=== PATIENT | female | born 1990 | race Two or more races ===

== ENCOUNTER 2025-06-20 06:59 | Inpatient (IN) | payer MEDICAID, OTHER ==
[~2025-06-20] VITALS: Ht 157.5 cm; Wt 66.5 kg
--- NOTE | 2025-06-20 07:18 | ED.PDOC ---
GI ASSESSMENT HPI Comments 34 y/o F, with no prior medical history presents to the ED for CC of abdominal pain. Patient states, she has been experiencing epigastric abdominal pain with associated symptoms of nausea, vomiting, and chills onset, Friday (06/15/25). Patient reports, she has experienced similar symptoms in the past when told to have IBD. At this time patient complains of 10/10 abdominal pain. Patient denies diarrhea, fatigue, fever, faintness, or weakness. No other symptoms or modifying factors are present at this time. Chief Complaint: Abdominal Pain Time Seen by MD: 07:10 Reviewed Notes: Nurses Notes, Medications, Allergies Allergies: Coded Allergies: NSAIDs (Verified Allergy, Unknown, 06/20/25) Information Source: Patient Mode of Arrival: Ambulatory Timing: Days Duration: Since onset Prehospital treatment: None Vomitus: Watery Stool: Normal Severity: Moderate Recent: None Recent Hx of: Abdominal Operations Pain Location: Epigastric Modifying Factors: Nothing Associated sign and symptoms: Nausea, Vomiting, Abdominal Pain Past Medical History PAST MEDICAL HISTORY: Denies Surgical History: , Hernia Repair, Tubal Ligation Surgical History (Other): gastric bypass WIRE SAWYER History: Denies all WIRE SAWYER Hx Family History Family History: No family hx of Lung [place], Family hx of Cancer Social History Smoker: Non-Smoker Alcohol: Occasionally Drugs: Denies Drug Use Lives In: Home Constitutional: reports: chills; denies: diaphoresis, fatigue, fever, malaise, sweats, weakness, others EENTM: denies: blurred vision, double vision, ear bleeding, ear discharge, ear drainage, ear pain, ear ringing, eye pain, eye redness, hearing loss, mouth pain, mouth swelling, nasal discharge, nose bleeding, nose congestion, nose pain, photophobia, tearing, throat pain, throat swelling, voice changes, others Respiratory: denies: cough, hemoptysis, orthopnea, SOB at rest, shortness of breath, SOB with excertion, stridor, wheezing, others Cardiovascular: denies: chest pain, dizzy spells, diaphoresis, Dyspnea on exertion, edema, irregular heart beat, left arm pain, lightheadedness, palpitations, PND, syncope, others Gastrointestinal: reports: abdominal pain, nausea, vomiting; denies: abdomen distended, blood streaked bowels, constipated, diarrhea, dysphagia, difficulty swallowing, hematemesis, melena, poor appetite, poor fluid intake, rectal bleeding, rectal pain, others Genitourinary: denies: abnormal vagina bleeding, burning, dyspareunia, dysuria, flank pain, frequency, hematuria, incontinence, pain, , vagina discharge, urgency, others Neurological: denies: dizziness, fainting, headache, left sided numbness, left sided weakness, numbness, paresthesia, pre-existing deficit, right sided numbness, right sided weakness, seizure, speech problems, tingling, tremors, weakness, others Musculoskeletal: denies: back pain, gout, joint pain, joint swelling, muscle pain, muscle stiffness, neck pain, others Integumetry: denies: bruises, change in color, change in hair/nails, dryness, laceration, lesions, lumps, rash, wounds, others Allergic/Immunocompromised: denies: Difficulty Healing, Frequent Infections, Hives, Itching, others Hematologic/Lymphatic: denies: anemia, blood clots, easy bleeding, easy bruising, swollen glands, others Endocrine: denies: excessive hunger, excessive sweating, excessive thirst, excessive urination, flushing, intolerance to cold, intolerance to heat, unexplained weight gain, unexplained weight loss, others Psychiatric: denies: anxiety, bipolar disorder, depression, hopeless, panic disorder, schizophrenia, sleepless, suicidal, others All Other Systems: Reviewed and Negative Physical Exam General Appearance: Moderate Distress HEENT: Pale Conjuntivae (L), Pale Conjuntivae (R), Pharynx Normal, TMs Normal Neck: Full Range of Motion, Non-Tender, Normal, Normal Inspection Respiratory: Chest Non-Tender, Lungs Clear, No Accessory Muscle Use, No Respiratory Distress, Normal Breath Sounds Cardiovascular: No Edema, No JVD, No Murmur, No Gallop, Normal Peripheral Pulses, Regular Rate/Rhythm Breast Exam: Deferred Gastrointestinal: Epigastric, No Organomegaly, No Pulsatile Mass, Normal Bowel Sounds, Soft, Tenderness Genitalia: Deferred Pelvic: Deferred Rectal: Deferred Extremities: No calf tenderness, Normal capillary refill, Normal inspection, Normal range of motion, Non-tender, No pedal edema Musculoskeletal : Apperance: Normal Neurologic: Alert, detective supervisor II-XII nml as Tested, Motor Weakness, Normal Affect, Normal Mood, No Sensory Deficits Cerebellar Function: Normal Reflexes: Normal Skin: Dry, Normal Color, Warm Lymphatic: No Adenopathy Was a procedure done? Was a procedure done?: No GI differential Dx Differential Diagnosis: Constipation, Diverticular disease, Gastritis/PUD, Gastroenteritis, Inflammatory BD, Electrolyte Imbalance, Food Poisoning, Bacterial, Viral X-Ray, Labs, Meds, VS Vital Signs Date Time Temp Pulse Resp B/P (MAP) Pulse Ox O2 Delivery O2 Flow Rate FiO2 06/20/25 08:33 72 18 151/60 06/20/25 08:30 98.2 72 18 151/60 (90) 97 98.2 06/20/25 07:39 98.2 81 17 95/70 (78) 100 98.2 06/20/25 07:37 18 100 Room Air* 0 21 06/20/25 07:01 98.4 111 20 115/55 99 98.4 Lab Test 06/20/25 07:43 06/20/25 07:20 Range/Units Urine Color Pending Urine Clarity Pending Urine pH Pending Urine Specific [place] Pending Urine Protein Pending Urine Ketones Pending Urine Blood Pending Urine Nitrite Pending Urine Bilirubin Pending Urine Urobilinogen Pending Urine Leukocyte Esterase Pending Urine RBC Pending Urine Microscopic WBC Pending Urine Squamous Epithelial Cells Pending Urine Bacteria Pending Urine Glucose Pending White Blood Count 9.3 4.4-10.8 10^3/uL Red Blood Count 4.58 4.0-5.20 10^6/uL Hemoglobin 14.6 12.2-16.2 g/dL Hematocrit 40.9 36.0-46.0 % Mean Corpuscular Volume 89.3 80.0-100.0 fL Mean Corpuscular Hemoglobin 31.8 28.0-32.0 pg Mean Corpuscular Hemoglobin Concent 35.7 32.0-36.0 g/dL Red Cell Distribution Width 14.8 H 11.8-14.3 % Platelet Count 246 140-450 10^3/uL Mean Platelet Volume 7.8 6.9-10.8 fL Neutrophils (%) (Auto) 84.5 H 37.0-80.0 % Lymphocytes (%) (Auto) 11.5 10.0-50.0 % Monocytes (%) (Auto) 3.5 0.0-12.0 % Eosinophils (%) (Auto) 0.2 0.0-7.0 % Basophils (%) (Auto) 0.3 0.0-2.0 % Neutrophils # (Auto) 7.8 1.6-8.6 10 ^3/uL Lymphocytes # (Auto) 1.1 0.4-5.4 10 ^3/uL Monocytes # (Auto) 0.3 0-1.3 10 ^3/uL Eosinophils # (Auto) 0 0-0.8 10 ^3/uL Basophils # (Auto) 0 0-0.2 10 ^3/uL Nucleated Red Blood Cells 0.0 % Sodium Level 144 136-145 mmol/L Potassium Level 4.2 3.5-5.1 mmol/L Chloride Level 108 H 98-107 mmol/L Carbon Dioxide Level 23 20-31 mmol/L Anion Gap 13 5-15 Blood Urea Nitrogen 6 L 9-23 mg/dL Creatinine 0.78 0.550-1.02 mg/dL Glomerular Filtration Rate Calc 101 >90 mL/min BUN/Creatinine Ratio 7.7 L 10.0-20.0 Serum Glucose 103 74-106 mg/dL Calcium Level 10.3 8.7-10.4 mg/dL Total Bilirubin 0.4 0.2-1.0 mg/dL Aspartate Amino Transferase (AST) 18 13-40 U/L Alanine Aminotransferase (ALT) 13 7-40 U/L Alkaline Phosphatase 61 46-116 U/L Total Protein 7.9 5.7-8.2 g/dL Albumin 4.9 H 3.2-4.8 g/dL Lipase 42 12-53 U/L Current Medications Medications (Trade) Dose Ordered Sig/Celia Route Start Time Stop Time Status Last Admin Ondansetron HCl (Zofran) 4 mg ONCE ONCE IV 06/20/25 07:15 06/20/25 07:16 DC 06/20/25 07:43 Morphine Sulfate 4 mg ONCE ONCE IV 06/20/25 07:15 06/20/25 07:16 DC 06/20/25 08:33 Sodium Chloride 500 ml @ 500 mls/hr Q1H ONCE IVB 06/20/25 07:15 06/20/25 08:14 DC 06/20/25 07:43 Pantoprazole Sodium (Protonix) 40 mg ONCE ONCE IV 06/20/25 07:15 06/20/25 07:16 DC 06/20/25 07:43 CAT scan of the abdomen and pelvis shows: IMPRESSION: Limited evaluation without contrast. Abnormally dilated small bowel with Fecal like contents consistent with small- bowel obstruction. Recommend surgical consultation. There is associated bowel wall thickening and mesenteric stranding. Extremely heterogeneous appearance of the uterus with numerous hypodense foci and abnormal enlargement. Recommend pelvic ultrasound to further evaluate for potential uterine mass, cystic leiomyoma, other etiologies including endometrial neoplasm. Cystic/ hypodense region near the pancreatic head region measuring 2.5 x 3.4 cm. Recommend MRI abdomen with and without contrast, surgical consultation. Postsurgical changes stomach, likely gastric bypass. Correlate with surgical history. Small amount of free pelvic fluid. Nonobstructing left renal calculus. IV Hep-Lock was established. The patient was given morphine 4 mg IV push for the pain The patient was given Zofran 4 mg IV push for the nausea The patient was given normal saline at a 500 cc bolus. The patient was given Protonix 40 mg IV push The lipase is within normal limits The patient's liver enzymes are within normal limits The patient's CBC and chemistry panel are within normal limits After reviewing the CAT scan, we are getting a surgical consult. The patient will have an NG-tube placed. After reviewing the patient's history, there is a concern that the patient may indeed have uterine cancer with possible metastasis. The patient will be admitted at this time. We are discussing the findings with the patient. Images Reviewed?: Images reviewed and evaluated by me Time of 1ST Reevaluation: 07:40 Reevaluation 1ST: Unchanged Patient Education/Counseling: Diagnosis, Treatment, Prognosis Family Education/Counseling: No Family Present SEPSIS Sepsis Screen Date sepsis recognized/suspect: Jun 20, 2025 Time Sepsis recognized/suspect: 703 Recent Procedure: No On Antibiotic Therapy: No Respiratory Rate >20: No Heart Rate >90: Yes Temp<36 C (96.8 F) or >38.3 C: No SBP <90 or MAP <65 mmHG: No New Acute Mental Status Change: No Is the patient on CPAP, BIPAP,: No Physician Orders Urinalysis (06/20/25 07:13) Ct Ab Pel Wo Con-No Oral Or Iv (06/20/25 07:13) Heplock Iv (06/20/25 07:13) Ngt/Ogt (06/20/25 ) * Surgical Consult (06/20/25 ) Vital Signs Date Time Temp Pulse Resp B/P (MAP) Pulse Ox O2 Delivery O2 Flow Rate FiO2 06/20/25 08:33 72 18 151/60 06/20/25 08:30 98.2 72 18 151/60 (90) 97 98.2 06/20/25 07:39 98.2 81 17 95/70 (78) 100 98.2 06/20/25 07:37 18 100 Room Air* 0 21 06/20/25 07:01 98.4 111 20 115/55 99 98.4 Laboratory Tests Test 06/20/25 07:20 White Blood Count 9.3 10^3/uL (4.4-10.8) Medications Medications Dose Ordered Sig/Celia Route Start Time Stop Time Status Last Admin Dose Admin Morphine Sulfate 4 mg ONCE ONCE IV 06/20/25 07:15 06/20/25 07:16 DC 06/20/25 08:33 Ondansetron HCl 4 mg ONCE ONCE IV 06/20/25 07:15 06/20/25 07:16 DC 06/20/25 07:43 Pantoprazole Sodium 40 mg ONCE ONCE IV 06/20/25 07:15 06/20/25 07:16 DC 06/20/25 07:43 Sodium Chloride 500 ml @ 500 mls/hr Q1H ONCE IVB 06/20/25 07:15 06/20/25 08:14 DC 06/20/25 07:43 Departure 1 Departure Time of Disposition: 09:13 Impression: Primary Impression: Intractable abdominal pain Additional Impressions: Small bowel obstruction Uterine mass Pancreatic mass Vomiting Qualified Codes: R11.14 - Bilious vomiting Disposition: ADMITTED INPATIENT Admit to: Med Surg Condition: Fair Critical Care Note Critical Care Time?: No Stability Stability form required: Yes Unstable for transfer: Telemetry monitoring (Telemetry monitoring required), ED Physician Assesment (Clinical assesment) Heart Score Heart Score: Heart Score Response (Comments) Value History N/A 0 EKG N/A 0 Age N/A 0 Risk Factors N/A 0 Troponin N/A 0 Total 0 I personally scribed for MARIA LUISA BOWER MD ([email or web address]) on 06/20/25 at 07:18. Electronically submitted by Jackie Lugo ([email or web address]). MARIA LUISA BOWER MD Jun 20, 2025 07:18
[2025-06-20 07:37] VITALS: RESP 18; O2SAT 100
[2025-06-20 07:38] LABS: Hematocrit 40.9 % (36.0-46.0); Hemoglobin 14.6 g/dL (12.2-16.2); Mean Corpuscular Hemoglobin 31.8 pg (28.0-32.0); Mean Corpuscular Volume 89.3 fL (80.0-100.0); Nucleated Red Blood Cells % 0.0 %
[2025-06-20] MEDS: PANTOPRAZOLE 40 MG/10 ML VIAL INJ IV ONE (07:43)
[2025-06-20] MEDS: SODIUM CHLORIDE 0.9% 500 ML IVB ONE (07:43)
[2025-06-20] MEDS: ONDANSETRON HCL 4 MG/2 ML VIAL IV ONE (07:43)
[2025-06-20 07:56] LABS: Alanine Aminotransferase 13 U/L (7-40); Alkaline Phosphatase 61 U/L (46-116); Anion Gap 13 (5-15); BUN/Creatinine Ratio 7.7 (10.0-20.0); Calcium 10.3 mg/dL (8.7-10.4); Carbon Dioxide 23 mmol/L (20-31); Glucose 103 mg/dL (74-106); Potassium 4.2 mmol/L (3.5-5.1); Sodium 144 mmol/L (136-145); Total Protein 7.9 g/dL (5.7-8.2)
[2025-06-20 07:57] LABS: Bilirubin, Total 0.4 mg/dL (0.2-1.0)
[2025-06-20 07:58] LABS: Albumin 4.9 g/dL (3.2-4.8); Blood Urea Nitrogen 6 mg/dL (9-23); Chloride 108 mmol/L (98-107)
--- NOTE | 2025-06-20 08:27 | DVH ---
Indication: pain Technique: CT axial images of the abdomen and pelvis are obtained without contrast. Coronal and sagit jaimie reformats were obtained. Radiation Dose Information: CTDI volume is 8.44 mGy. Dose-length product is 427.81 mGy*cm Comparison: None FINDINGS: There is limited interpretation of the abdomen and pelvis without administration of intravenous contr ast. Lung bases demonstrate no pleural effusion. Adrenal glands, spleen unremarkable in shape. Liver unremarkable in shape. Postsurgical changes stomachm. There is hypodense /cystic appearing lesion near the pancreatic and region measuring 2.5 x 3.4 cm Kidneys demonstrate no hydronephrosis. Nonobstructing left renal calculus measuring 2 mm. The small bowel loops are abnormally dilated up to 5 cm. Fecal like contents within the small bowel e specially withinm the right abdomen. There is associated surrounding stranding and mild bowel wall th ickening Small bowel loops relatively nondistended. No secondary signs for appendicitis. The uterus is extremely heterogeneous in appearance. There are numerous regions of ill-defined hypode nsity throughout the uterus/endo myometrial region. Small amount of free pelvic fluid. No inguinal ly mphadenopathy. No aggressive osseous process IMPRESSION: Limited evaluation without contrast. Abnormally dilated small bowel with Fecal like contents consistent with small-bowel obstruction. Rec ommend surgical consultation. There is associated bowel wall thickening and mesenteric stranding. Extremely heterogeneous appearance of the uterus with numerous hypodense foci and abnormal enlargemen t. Recommend pelvic ultrasound to further evaluate for potential uterine mass, cystic leiomyoma, oth er etiologies including endometrial neoplasm. Cystic/ hypodense region near the pancreatic head region measuring 2.5 x 3.4 cm. Recommend MRI abdom en with and without contrast, surgical consultation. Postsurgical changes stomach, likely gastric bypass. Correlate with surgical history. Small amount of free pelvic fluid. Nonobstructing left renal calculus. Other findings as described.
[2025-06-20] MEDS: MORPHINE SULFATE 4 MG/ML SYR/VIAL IV ONE (08:33)
[2025-06-20 08:53] LABS: Lipase 42 U/L (12-53)
[2025-06-20 09:14] LABS: Urine Budding Yeast OCCASIONAL /hpf (None Seen); Urine Protein, UAD Negative (Negative)
--- NOTE | 2025-06-20 11:27 | DVH ---
CLINICAL HISTORY: CHECK PLACEMENT TECHNIQUE: Single view of the chest was obtained. COMPARISON: None FINDINGS: A NGT terminates at the stomach. The heart size and pulmonary vasculature are normal. The lungs are c lear. IMPRESSION: NO ACUTE CARDIOPULMONARY PROCESS.
--- NOTE | 2025-06-20 12:14 | DVHHP2 ---
History of Present Illness Reason for Visit: Abdominal pain History of Present Illness 34-year-old female with history of ischemic small intestine presented to the ED with a chief complaint of abdominal pain. Patient states she has been having epigastric abdominal pain with nausea vomiting and chills onset Friday 06/15. Patient states she was able to have a bowel movement this morning, when she was at home she took MiraLax/milk of magnesia/mineral oil enema which helped but she did not feel that she had a significant bowel movement, patient states no blood in stool noted, after bowel movement abdominal pain did not subside. Patient states current abdominal pain is 8/10, she denies diarrhea, fatigue, fever, dizziness, weakness no other symptoms or modifying factors are present at this time. Patient is having an NG-tube placed, patient speaks both French and [place]ish. We will admit patient for surgical consult and management/treatment, abdominal CT does show small bowel obstruction. Past Surgical History , hernia, tubal ligation, gastric bypass, cholecystectomy Family History Family history of cancer Smoke: No ALCOHOL: rare Drugs: None Lives: with Family Review of Systems Constitutional: No: Fever, Chills, Sweats, Weakness, Malaise, Other Eyes: No: Pain, Vision change, Conjunctivae inflammation, Eyelid inflammation, Other, Redness ENT: No: Ear pain, Ear discharge, Nose pain, Nose discharge, Nose congestion, Mouth pain, Mouth swelling, Throat pain, Throat swelling, Other Respiratory: No: Cough, Dry, Shortness of breath, SOB with excertion, Wheezing, Hemoptysis, Pleuritic Pain, Sputum, Wheezing, Other Cardiovascular: No: Chest Pain, Palpitations, Orthopnea, Paroxysmal Noc. Dyspnea, Edema, Lt Headedness, Other Gastrointestinal: Nausea, Vomiting, Abdominal Pain; No: Diarrhea, Constipation, Melena, Hematochezia, Other Genitourinary: No Dysuria, No Frequency, No Incontinence, No Hematuria, No Retention, No Other Musculoskeletal: No: other, neck pain, shoulder pain, arm pain, back pain, hand pain, leg pain, foot pain Skin: No: Rash, Lesions, Jaundice, Bruising, Other Neurological: No: Weakness, Numbness, Incoordination, Change in speech, Confusion, Seizures, Other Allergies: Coded Allergies: NSAIDs (Verified Allergy, Unknown, 06/20/25) Medications Current Medications Medications Dose Ordered Sig/Celia Route Start Time Stop Time Status Last Admin Dose Admin Sodium Chloride 1,000 ml @ 120 mls/hr Q8H20M IV 06/20/25 11:15 UNV Ondansetron HCl 4 mg Q4HP PRN IV 06/20/25 11:15 UNV Morphine Sulfate 2 mg Q4HPRN PRN IV 06/20/25 11:15 UNV Ceftriaxone Sodium 50 ml @ 100 mls/hr DAILY@09 IV 06/20/25 11:15 UNV Metronidazole 100 ml @ 100 mls/hr Q8HR IV 06/20/25 14:00 UNV Exam Vital Signs Vital Signs Date Time Temp Pulse Resp B/P (MAP) Pulse Ox O2 Delivery O2 Flow Rate FiO2 06/20/25 10:04 68 06/20/25 10:00 98.0 18 118/74 (89) 99 98.0 06/20/25 07:37 Room Air* 0 21 General Appearance: Alert, Oriented X3, Cooperative, No acute distress HEENT: Atraumatic, PERRLA, EOMI, Mucous membr. moist/pink Respiratory: Clear to auscultation, Normal air movement Cardiovascular: Regular rate, Normal S1, Normal S2, No murmurs Abdominal: Normal bowel sounds, Soft, No hepatospenomegaly, No masses, Other (Abdomen tender to palpation specifically upper mid abdomen) Extremities: No clubbing, No cyanosis, No edema, Normal pulses, No tenderness/swelling Skin: No rashes, No breakdown, No significant lesion Neuro: Normal gait, Normal speech, Strength at 5/5 X4 ext, Sensation intact, Cranial nerves 3-12 NL Psych/Mental Status: Mental status NL, Mood NL Labs/Xrays Reviewed with patient Labs Test 06/20/25 07:43 06/20/25 07:20 Range/Units Urine Color Light-yellow Yellow Urine Clarity Clear Clear Urine pH 7.5 5.0-9.0 Urine Specific [place] 1.020 1.001-1.035 Urine Protein Negative Negative Urine Ketones 3+ H Negative Urine Blood 2+ H Negative /uL Urine Nitrite Negative Negative Urine Bilirubin Negative Negative Urine Urobilinogen Normal Negative mg/dL Urine Leukocyte Esterase Negative Negative /uL Urine RBC 27 0 - 4 /hpf Urine Microscopic WBC < 1 0-5 /HPF Urine Squamous Epithelial Cells Few <5 /hpf Urine Bacteria None seen None Seen /hpf Urine Mucus Few None Seen Urine Yeast (Budding) Occasional None Seen /hpf Urine Glucose Normal Normal mg/dL White Blood Count 9.3 4.4-10.8 10^3/uL Red Blood Count 4.58 4.0-5.20 10^6/uL Hemoglobin 14.6 12.2-16.2 g/dL Hematocrit 40.9 36.0-46.0 % Mean Corpuscular Volume 89.3 80.0-100.0 fL Mean Corpuscular Hemoglobin 31.8 28.0-32.0 pg Mean Corpuscular Hemoglobin Concent 35.7 32.0-36.0 g/dL Red Cell Distribution Width 14.8 H 11.8-14.3 % Platelet Count 246 140-450 10^3/uL Mean Platelet Volume 7.8 6.9-10.8 fL Neutrophils (%) (Auto) 84.5 H 37.0-80.0 % Lymphocytes (%) (Auto) 11.5 10.0-50.0 % Monocytes (%) (Auto) 3.5 0.0-12.0 % Eosinophils (%) (Auto) 0.2 0.0-7.0 % Basophils (%) (Auto) 0.3 0.0-2.0 % Neutrophils # (Auto) 7.8 1.6-8.6 10 ^3/uL Lymphocytes # (Auto) 1.1 0.4-5.4 10 ^3/uL Monocytes # (Auto) 0.3 0-1.3 10 ^3/uL Eosinophils # (Auto) 0 0-0.8 10 ^3/uL Basophils # (Auto) 0 0-0.2 10 ^3/uL Nucleated Red Blood Cells 0.0 % Sodium Level 144 136-145 mmol/L Potassium Level 4.2 3.5-5.1 mmol/L Chloride Level 108 H 98-107 mmol/L Carbon Dioxide Level 23 20-31 mmol/L Anion Gap 13 5-15 Blood Urea Nitrogen 6 L 9-23 mg/dL Creatinine 0.78 0.550-1.02 mg/dL Glomerular Filtration Rate Calc 101 >90 mL/min BUN/Creatinine Ratio 7.7 L 10.0-20.0 Serum Glucose 103 74-106 mg/dL Calcium Level 10.3 8.7-10.4 mg/dL Total Bilirubin 0.4 0.2-1.0 mg/dL Aspartate Amino Transferase (AST) 18 13-40 U/L Alanine Aminotransferase (ALT) 13 7-40 U/L Alkaline Phosphatase 61 46-116 U/L Total Protein 7.9 5.7-8.2 g/dL Albumin 4.9 H 3.2-4.8 g/dL Lipase 42 12-53 U/L SEPSIS Sepsis Screen Date sepsis recognized/suspect: Jun 20, 2025 Time Sepsis recognized/suspect: 703 Recent Procedure: No On Antibiotic Therapy: No Respiratory Rate >20: No Heart Rate >90: Yes Temp<36 C (96.8 F) or >38.3 C: No SBP <90 or MAP <65 mmHG: No New Acute Mental Status Change: No Is the patient on CPAP, BIPAP,: No Physician Orders Ct Ab Pel Wo Con-No Oral Or Iv (06/20/25 07:13) Heplock Iv (06/20/25 07:13) Ngt/Ogt (06/20/25 ) * Surgical Consult (06/20/25 ) Chest Portable (06/20/25 10:35) Admit (06/20/25 11:07) Allergies (06/20/25 11:07) Code Status (06/20/25 11:07) Sodium Chloride 0.9% (06/20/25 11:15) Ondansetron Hcl (Zofran) (06/20/25 11:15) Complete Blood Count (06/21/25 04:00) Comprehensive Metabolic Panel (06/21/25 04:00) Npo (Nothing By Mouth) Diet (06/20/25 Lunch) Condition: Serious (06/20/25 11:07) Bedside Commode (06/20/25 11:07) Morphine Sulfate Injection (06/20/25 11:15) Pelvic (06/20/25 11:07) Ceftriaxone 1gm/50ml D5w (Rocephin) (06/20/25 11:15) Metronidazole 500mg/100ml (Flagyl 500mg/ (06/20/25 14:00) Vital Signs Date Time Temp Pulse Resp B/P (MAP) Pulse Ox O2 Delivery O2 Flow Rate FiO2 06/20/25 10:04 68 06/20/25 10:00 98.0 77 18 118/74 (89) 99 98.0 06/20/25 08:33 72 18 151/60 06/20/25 08:30 98.2 72 18 151/60 (90) 97 98.2 06/20/25 07:39 98.2 81 17 95/70 (78) 100 98.2 06/20/25 07:37 18 100 Room Air* 0 21 06/20/25 07:01 98.4 111 20 115/55 99 98.4 Laboratory Tests Test 06/20/25 07:20 White Blood Count 9.3 10^3/uL (4.4-10.8) Medications Medications Dose Ordered Sig/Celia Route Start Time Stop Time Status Last Admin Dose Admin Morphine Sulfate 4 mg ONCE ONCE IV 06/20/25 07:15 06/20/25 07:16 DC 06/20/25 08:33 4 MG Ondansetron HCl 4 mg ONCE ONCE IV 06/20/25 07:15 06/20/25 07:16 DC 06/20/25 07:43 4 MG Pantoprazole Sodium 40 mg ONCE ONCE IV 06/20/25 07:15 06/20/25 07:16 DC 06/20/25 07:43 40 MG Sodium Chloride 500 ml @ 500 mls/hr Q1H ONCE IVB 06/20/25 07:15 06/20/25 08:14 DC 06/20/25 07:43 500 MLS/HR Assessment/Plan Assessment/Plan Small-bowel obstruction Consult surgical admit to medical/surg NG tube placed Empiric antibiotics Rocephin/Flagyl Zofran for nausea p.r.n. morphine for pain p.r.n. IV fluids Possible uterine mass noted on CT abdomen Pelvic ultrasound pending Hospitalist can Consider Oncology/gynecological consult PPX/diet NPO Protonix Plan discussed with: Patient My Orders Orders - ANTOINE MARIE TELEPHONE TRIAGE NURSE Procedure Category Date Status Time Chest Portable XY 06/20/25 Resulted 10:35 Admit ADMIT 06/20/25 Transmitted 11:07 Allergies GINO 06/20/25 In Process 11:07 Code Status CODE 06/20/25 Transmitted 11:07 Sodium Chloride 0.9% PHA 06/20/25 Logged 11:15 Ondansetron Hcl PHA 06/20/25 Logged (Zofran) 11:15 Complete Blood Count LAB 06/21/25 Verified 04:00 Comprehensive LAB 06/21/25 Verified Metabolic Panel 04:00 Npo (Nothing By DIET 06/20/25 Transmitted Mouth) Diet Lunch Condition: Serious GINO 06/20/25 In Process 11:07 Bedside Commode GINO 06/20/25 In Process 11:07 Morphine Sulfate PHA 06/20/25 Logged Injection 11:15 Pelvic US 06/20/25 Taken 11:07 Ceftriaxone 1gm/50ml PHA 06/20/25 Logged D5w (Rocephin) 11:15 Metronidazole PHA 06/20/25 Logged 500mg/100ml (Flagyl 14:00 Date of Service: Jun 20, 2025 Billing Provider: ANTOINE MARIE Common Visit Codes: [id number] INP/OBS CARE (HIGH) ANTOINE MARIE Jun 20, 2025 12:14
--- NOTE | 2025-06-20 12:36 | DVH ---
CLINICAL HISTORY: uterine mass TECHNIQUE: Ultrasound examination of the female pelvis was performed transabdominal. COMPARISON: None FINDINGS: The uterus measures 10.7 X 7.9 X 9.2 CM. The myometrial echotexture is heterogeneous with 6.6 cm jacquelyn rine body / fundal fibroid. There is a 2.9 cm right uterine subserosal fibroid. The endometrial lining is normal in thickness, measuring 9 mm. The right ovary measures 4.9 X 2.9 X 3.4 cm. The left ovary measures 3.7 X 3.0 X 3.5 cm. Normal color doppler flow and vascular waveforms. There is trace nonspecific free fluid. IMPRESSION: Uterine fibroids measuring up to 6.6 cm.
--- NOTE | 2025-06-20 12:50 | DVHINCON2 ---
Date of service: Jun 20, 2025 History of Present Illness 34-year-old female with a history of multiple abdominal surgeries admitted secondary to diffuse abdominal pain especially in the epigastric region associated with nausea and vomiting for past six days. Patient reports that she did have a bowel movement earlier today with the help of a laxative. Past Medical History None Past Surgical History Laparoscopic gastric bypass surgery. Laparoscopic cholecystectomy. Two C- sections. Tubal ligation. Hernia repair. Family History Noncontributory Social History Denies alcohol, tobacco, IV drug use Allergies: Coded Allergies: NSAIDs (Verified Allergy, Unknown, 06/20/25) Current Medications Current Medications Medications (Trade) Dose Ordered Sig/Celia Route PRN Reason Start Time Stop Time Status Last Admin Sodium Chloride 1,000 ml @ 120 mls/hr Q8H20M IV 06/20/25 11:15 UNV Ondansetron HCl (Zofran) 4 mg Q4HP PRN IV NAUSEA / VOMITING 06/20/25 11:15 UNV Morphine Sulfate 2 mg Q4HPRN PRN IV SEVERE PAIN (7-10 PAIN SCALE) 06/20/25 11:15 UNV Ceftriaxone Sodium 50 ml @ 100 mls/hr DAILY@09 IV 06/20/25 11:15 UNV Metronidazole 100 ml @ 100 mls/hr Q8HR IV 06/20/25 14:00 UNV Pantoprazole Sodium (Protonix) 40 mg DAILY IV 06/21/25 10:00 UNV Vital Signs Vital Signs Date Time Temp Pulse Resp B/P (MAP) Pulse Ox O2 Delivery O2 Flow Rate FiO2 06/20/25 12:21 94 06/20/25 12:00 14 121/60 (80) 94 06/20/25 10:00 98.0 98.0 06/20/25 07:37 Room Air* 0 21 Physical Exam GEN: Age-appropriate female in no acute distress. Alert. There is an NG tube to low intermittent suction. HEENT: Normocephalic atraumatic. Moist mucous membranes. Anicteric sclerae. NG tube to low intermittent suction. CV: RRR Respiratory: CTAB ABD: Large midline incisional scar with multiple smaller incisional scars. Minimal distention with especially epigastric tenderness to palpation with guarding. CT of the abdomen and pelvis: Abnormally dilated small bowel with fecal I contents consistent with small-bowel obstruction. There is a associated bowel wall thickening and mesenteric stranding. Extremely heterogeneous appearance of the uterus with numerous hypodense foci and abnormal enlargement. Cystic/hypodense region near the pancreatic head region measuring 2.5 x 3.4 cm. Postsurgical changes to stomach but gastric bypass. Small amount of free pelvic fluid. Labs/Diagnostic Data Labs Test 06/20/25 07:43 06/20/25 07:20 Range/Units Urine Color Light-yellow Yellow Urine Clarity Clear Clear Urine pH 7.5 5.0-9.0 Urine Specific [place] 1.020 1.001-1.035 Urine Protein Negative Negative Urine Ketones 3+ H Negative Urine Blood 2+ H Negative /uL Urine Nitrite Negative Negative Urine Bilirubin Negative Negative Urine Urobilinogen Normal Negative mg/dL Urine Leukocyte Esterase Negative Negative /uL Urine RBC 27 0 - 4 /hpf Urine Microscopic WBC < 1 0-5 /HPF Urine Squamous Epithelial Cells Few <5 /hpf Urine Bacteria None seen None Seen /hpf Urine Mucus Few None Seen Urine Yeast (Budding) Occasional None Seen /hpf Urine Glucose Normal Normal mg/dL White Blood Count 9.3 4.4-10.8 10^3/uL Red Blood Count 4.58 4.0-5.20 10^6/uL Hemoglobin 14.6 12.2-16.2 g/dL Hematocrit 40.9 36.0-46.0 % Mean Corpuscular Volume 89.3 80.0-100.0 fL Mean Corpuscular Hemoglobin 31.8 28.0-32.0 pg Mean Corpuscular Hemoglobin Concent 35.7 32.0-36.0 g/dL Red Cell Distribution Width 14.8 H 11.8-14.3 % Platelet Count 246 140-450 10^3/uL Mean Platelet Volume 7.8 6.9-10.8 fL Neutrophils (%) (Auto) 84.5 H 37.0-80.0 % Lymphocytes (%) (Auto) 11.5 10.0-50.0 % Monocytes (%) (Auto) 3.5 0.0-12.0 % Eosinophils (%) (Auto) 0.2 0.0-7.0 % Basophils (%) (Auto) 0.3 0.0-2.0 % Neutrophils # (Auto) 7.8 1.6-8.6 10 ^3/uL Lymphocytes # (Auto) 1.1 0.4-5.4 10 ^3/uL Monocytes # (Auto) 0.3 0-1.3 10 ^3/uL Eosinophils # (Auto) 0 0-0.8 10 ^3/uL Basophils # (Auto) 0 0-0.2 10 ^3/uL Nucleated Red Blood Cells 0.0 % Sodium Level 144 136-145 mmol/L Potassium Level 4.2 3.5-5.1 mmol/L Chloride Level 108 H 98-107 mmol/L Carbon Dioxide Level 23 20-31 mmol/L Anion Gap 13 5-15 Blood Urea Nitrogen 6 L 9-23 mg/dL Creatinine 0.78 0.550-1.02 mg/dL Glomerular Filtration Rate Calc 101 >90 mL/min BUN/Creatinine Ratio 7.7 L 10.0-20.0 Serum Glucose 103 74-106 mg/dL Calcium Level 10.3 8.7-10.4 mg/dL Total Bilirubin 0.4 0.2-1.0 mg/dL Aspartate Amino Transferase (AST) 18 13-40 U/L Alanine Aminotransferase (ALT) 13 7-40 U/L Alkaline Phosphatase 61 46-116 U/L Total Protein 7.9 5.7-8.2 g/dL Albumin 4.9 H 3.2-4.8 g/dL Lipase 42 12-53 U/L Assessment 1. Small-bowel obstruction 2. Pancreatic cyst/lesion Plan/Recommendation 1. Continue with NG tube decompression 2. Small-bowel follow-through with Gastrografin 3. MRI to better assess the pancreatic cystic lesion Plan discussed with: Patient JOHANA REEDER MD Jun 20, 2025 12:50
[2025-06-20] MEDS: SODIUM CHLORIDE 0.9% 1,000 ML IV SCH (14:21)
[2025-06-20] MEDS: GASTROGRAFIN 120 ML SOL ONE (14:56)
--- NOTE | 2025-06-20 15:58 | DVH ---
SMALL BOWEL FOLLOW-THROUGH REASON FOR EXAMINATION: Small-bowel obstruction CONTRAST: 180 cc Gastrografin by enteric tube IMAGES: 4 images of the abdomen are submitted for review. FINDINGS: The licensing registration examiner film demonstrates cholecystectomy clips and an enteric tube with the tip and side hole projecting over the stomach. There is no supine evidence of pneumoperitoneum. There is no signi ficant distention of visualized small or large bowel loops on the licensing registration examiner image. Surgical sutures proje ct over the left upper quadrant. Contrast administered through the enteric tube enters the gastric remnant and rapidly passes into a l oop of jejunum in the left upper quadrant. Contrast passes rapidly as far as the distal ileum within 15 minutes. Contrast is identified throughout the colon and in the rectum within 30 minutes of admin istration. No extrinsic or intrinsic mass effect is identified. IMPRESSION: No evidence of small-bowel obstruction. Contrast reaches the rectum within 30 minutes of administrat ion.
[2025-06-20] MEDS: ONDANSETRON HCL 4 MG/2 ML VIAL IV PRN (17:03)
[2025-06-20] MEDS: MORPHINE SULFATE INJ 2 MG/ml SYRG IV PRN (17:05)
[2025-06-20 17:30] VITALS: BP 105/59; PULSE 73; RESP 18; RESP 19; TEMP 97.2; O2SAT 97
[2025-06-20 20:00] VITALS: PULSE 61; RESP 18; O2SAT 96
[2025-06-20 20:52] VITALS: BP 104/67; PULSE 61; RESP 18; TEMP 98.1; O2SAT 96
[2025-06-21] VITALS (8 sets, daily range): BP systolic 95–117; BP diastolic 56–71; PULSE 68–79; RESP 16–19; TEMP 98–98.6; O2SAT 96–100
[2025-06-21 08:58] LABS: Hematocrit 35.6 % (36.0-46.0); Hemoglobin 12.3 g/dL (12.2-16.2); Mean Corpuscular Hemoglobin 31.4 pg (28.0-32.0); Mean Corpuscular Volume 90.9 fL (80.0-100.0); Nucleated Red Blood Cells % 0.1 %
[2025-06-21 09:11] LABS: INR 1.08 (0.9-1.15); Partial Thromboplastin Time 25.6 SEC (24.5-34.5); Prothrombin Time 11.4 sec (9.3-11.8)
[2025-06-21 09:16] LABS: Alanine Aminotransferase 11 U/L (7-40); Albumin 3.9 g/dL (3.2-4.8); Alkaline Phosphatase 51 U/L (46-116); Anion Gap 9 (5-15); BUN/Creatinine Ratio 12.3 (10.0-20.0); Bilirubin, Total 0.7 mg/dL (0.2-1.0); Carbon Dioxide 24 mmol/L (20-31); Potassium 3.6 mmol/L (3.5-5.1); Sodium 141 mmol/L (136-145); Total Protein 6.2 g/dL (5.7-8.2)
[2025-06-21 09:21] LABS: Blood Urea Nitrogen 8 mg/dL (9-23); Calcium 8.3 mg/dL (8.7-10.4); Chloride 108 mmol/L (98-107); Glucose 107 mg/dL (74-106)
--- NOTE | 2025-06-21 09:37 | DVHPN2 ---
Progress Note - Dictate Date Seen: Jun 21, 2025 Medical Necessity Reason Pt with a Central, PICC or Fol: No vital signs Vital Sign Date Time Temp Pulse Resp B/P (MAP) Pulse Ox O2 Delivery O2 Flow Rate FiO2 06/21/25 08:29 79 18 110/62 06/21/25 08:24 96 Room Air* 0 21 06/21/25 05:00 98.5 98.5 Total Intake and Output 06/20/25 06/20/25 06/21/25 15:00 23:00 07:00 Intake Total 500 ml 150 ml 1260 ml Balance 500 ml 150 ml 1260 ml medications Current Medications Medications Dose Ordered Sig/Celia Route Start Time Stop Time Status Last Admin Dose Admin Sodium Chloride 1,000 ml @ 120 mls/hr Q8H20M IV 06/20/25 11:15 06/21/25 03:41 120 MLS/HR Ondansetron HCl 4 mg Q4HP PRN IV 06/20/25 11:15 06/20/25 17:03 4 MG Morphine Sulfate 2 mg Q4HPRN PRN IV 06/20/25 11:15 06/21/25 08:29 2 MG Ceftriaxone Sodium 50 ml @ 100 mls/hr DAILY@09 IV 06/20/25 11:15 06/21/25 08:24 100 MLS/HR Metronidazole 100 ml @ 100 mls/hr Q8HR IV 06/20/25 14:00 06/21/25 06:08 100 MLS/HR Pantoprazole Sodium 40 mg DAILY IV 06/21/25 10:00 objective E: no major events o/n. mauro clear liquid diet. GEN: NAD ABD: soft. min diffuse TTP but improved. SBFT: contrast in colon in 30 min laboratory and microbiology Laboratory Tests 06/21/25 08:28 Test 06/21/25 08:28 Range/Units Serum Glucose 107 H 74-106 mg/dL Assessment/Plan A: 1. Small-bowel obstruction resolved 2. Pancreatic cyst/lesion P: 1. MRI pending Plan discussed with: Patient JOHANA REEDER MD Jun 21, 2025 09:37
[2025-06-21] MEDS: PANTOPRAZOLE 40 MG/10 ML VIAL INJ IV SCH (09:57)
--- NOTE | 2025-06-21 13:21 | DVHPN2 ---
Subjective Patient continues to have epigastric pain. Reviewed: Care Plan, H&P, Labs, Medications Changes from previous H/P or p: No Changes General: Per HPI Eyes: No Pain, No Vision change, No Conjunctivae inflammation, No Eyelid inflammation, No Other, No Redness ENT: No Ear pain, No Ear discharge, No Nose pain, No Nose discharge, No Nose congestion, No Mouth pain, No Mouth swelling, No Throat pain, No Throat swelling, No Other Cardiovascular: No Chest Pain, No Palpitations, No Orthopnea, No Paroxysmal Noc. Dyspnea, No Edema, No Lt Headedness, No Other Respiratory: No Cough, No Dry, No Shortness of breath, No SOB with excertion, No Wheezing, No Hemoptysis, No Pleuritic Pain, No Sputum, No Other Gastrointestinal: No Diarrhea, No Constipation, No Melena, No Hematochezia, No Other Genitourinary: No Dysuria, No Frequency, No Incontinence, No Hematuria, No Retention, No Other Musculoskeletal: No other, No neck pain, No shoulder pain, No arm pain, No back pain, No hand pain, No leg pain, No foot pain Skin: No Rash, No Lesions, No Jaundice, No Bruising, No Other Objective Vitals Vital Signs Date Time Temp Pulse Resp B/P (MAP) Pulse Ox O2 Delivery O2 Flow Rate FiO2 06/21/25 13:06 98.6 72 16 108/63 (78) 97 98.6 06/21/25 08:24 Room Air* 0 21 Intake/Output Intake and Output 06/21/25 07:00 Intake Total 1910 ml Balance 1910 ml Intake Oral 0 ml IV Total 1910 ml # Voids 1 General Appearance: Alert, Oriented X3, Cooperative, mild distress HEENT: Atraumatic, PERRLA Lungs: Clear to auscultation, Normal air movement Cardiovascular: Normal S1, Normal S2 Abdomen: Normal bowel sounds, Soft, No tenderness, No hepatospenomegaly Musculoskeletal: Normal sensory function, Normal motor function Neuro: Normal gait, Normal speech Skin: Dry, Intact Psych/Mental Status: Mental status NL, Mood NL Medications Current Medications Medications Dose Ordered Sig/Celia Route Start Time Stop Time Status Last Admin Dose Admin Ondansetron HCl 4 mg Q4HP PRN IV 06/20/25 11:15 06/20/25 17:03 4 MG Morphine Sulfate 2 mg Q4HPRN PRN IV 06/20/25 11:15 06/21/25 08:29 2 MG Pantoprazole Sodium 40 mg DAILY IV 06/21/25 10:00 06/21/25 09:57 40 MG Sodium Chloride 1,000 ml @ 75 mls/hr [id number] IV 06/21/25 13:15 UNV Laboratory Results Laboratory Tests 06/21/25 08:28 Chemistry Test 06/21/25 08:28 Albumin 3.9 g/dL (3.2-4.8) Calcium Level 8.3 mg/dL (8.7-10.4) L Total Protein 6.2 g/dL (5.7-8.2) Coagulation Test 06/21/25 08:28 Prothrombin Time 11.4 sec (9.3-11.8) Prothrombin Time INR 1.08 (0.9-1.15) Activated Partial Thromboplast Time 25.6 SEC (24.5-34.5) LFT Test 06/21/25 08:28 Alanine Aminotransferase (ALT) 11 U/L (7-40) Alkaline Phosphatase 51 U/L (46-116) Aspartate Amino Transferase (AST) 14 U/L (13-40) Total Bilirubin 0.7 mg/dL (0.2-1.0) Urinalysis Test 06/20/25 07:43 Urine Color Light-yellow (Yellow) Urine Clarity Clear (Clear) Urine pH 7.5 (5.0-9.0) Urine Specific [place] 1.020 (1.001-1.035) Urine Protein Negative (Negative) Urine Ketones 3+ (Negative) H Urine Blood 2+ /uL (Negative) H Urine Nitrite Negative (Negative) Urine Bilirubin Negative (Negative) Urine Urobilinogen Normal mg/dL (Negative) Urine Leukocyte Esterase Negative /uL (Negative) Urine RBC 27 /hpf (0 - 4) Urine Microscopic WBC < 1 /HPF (0-5) Urine Squamous Epithelial Cells Few /hpf (<5) Urine Bacteria None seen /hpf (None Seen) Urine Mucus Few (None Seen) Urine Yeast (Budding) Occasional /hpf (None Urine Glucose Normal mg/dL (Normal) Labs and/or images reviewed: Labs reviewed by me, Image(s) reviewed by me Assessment/Plan Assessment/Plan Impression: -small-bowel obstruction, resolved -recent history of umbilical hernia repair -uterine fibroids -? Pancreatic mass versus cyst Plan: -surgical consultation: Recommendations reviewed. -NG tube removed. Advanced to full liquid diet -stop IV antibiotics -decrease IV fluids -MRI of abdomen and pelvis, moved to tomorrow given recent contrast -check CA 19-9, CA-125 -long discussion made with the patient regarding all diagnostic findings. All questions answered. Total time spent with patient discussing and formulating plan of care: 35 minutes. This medical document was created using an electronic medical record system with panpan dictation system. Although this document has been carefully reviewed, there may still be some phonetic and typographical errors. These areas are purely typographical due to imperfections of the software programs, and do not reflect any compromise in the patient's medical care. Plan discussed with: Patient, Other (RN ) My Orders Orders - WINSTON ZAMAN NP Procedure Category Date Status Time Carbohydrate Antigen LAB 06/21/25 In Process 19-9 Ca 125 (Serial) LAB 06/21/25 In Process 10:25 Sodium Chloride 0.9% PHA 06/21/25 Logged 13:15 Full Liq Diet DIET 06/21/25 Transmitted Lunch Date of Service: Jun 21, 2025 Billing Provider: WINSTON ZAMAN NP Common Visit Codes: [id number] INP/OBS CARE(HIGH) WINSTON ZAMAN NP Jun 21, 2025 13:21
[2025-06-21] MEDS: SODIUM CHLORIDE 0.9% 1,000 ML IV SCH (14:39)
[2025-06-22 01:00] VITALS: BP 99/55; PULSE 70; RESP 18; TEMP 98.3; O2SAT 97
[2025-06-22 05:00] VITALS: BP 105/69; PULSE 75; RESP 20; TEMP 98.6; O2SAT 98
[2025-06-22 09:00] VITALS: BP 112/67; PULSE 71; RESP 18; TEMP 98.5; O2SAT 99
[2025-06-22] MEDS ORDERED: GADOTERATE MEG 10 MMOL/20ml INJ (0.5MMOL/ml) IV ONE (11:42)
[2025-06-22 13:00] VITALS: BP 102/59; PULSE 68; RESP 18; TEMP 98.7; O2SAT 94
--- NOTE | 2025-06-22 15:29 | DVH ---
PROCEDURE: MRI MRI ABD PLEVIS W/WO CONT Indication: ABNORMAL CT FOR PANCREAS COMPARISON: CT abdomen pelvis from 06/20/2025, small-bowel series from 10/2024 TECHNIQUE: Multiplanar multisequence images of the abdomen, pelvis were obtained with and without con trast. FINDINGS: Examination degraded by motion. Adrenal glands, spleen, pancreas unremarkable. Pancreatic duct nondilated. No T2 hyperintense lesions within the liver. Gallbladder removed. The kidneys demonstrate no hydronephrosis. Postsurgical changes stomach.m dilated loops of small bowel in the left upper quadrant up to 4 cm. R emaining small bowel loops appear relatively nondilated. The abdominal aorta is normal in caliber. No retroperitoneal lymphadenopathy identified. Uterus is extremely heterogeneous in appearance. Uterus is enlarged measuring 14.5 cm craniocaudal. H eterogeneously enhancing lesion in the uterus demonstrating increased T2 signal measuring 6.3 x 5.8 x 7.4 cm. Other smaller T2 dark lesions within the uterus measuring up to 1.4 cm, likely leiomyomas. There is a small amount of ascites fluid extends into the paracolic gutters, [id number]-left and pelvis. Mesenteric edema. This is overall increased from the previous examination. No inguinal lymphadenopathy. There is a right pelvic/ adnexal region heterogeneous lesion measuring 6 x 6.9 x 3.4. This demonstra [place] heterogeneous enhancement Left ovarian follicle / cysts measuring up to 1.6 cm. Bladder partially distended. IMPRESSION: No evidence for pancreatic mass. Enlarged uterus measuring 14.5 cm craniocaudal with leiomyomas measuring up to 7.4 cm. The 7.4 cm lei omyoma appears to be degenerating/cysticm Small amount of the ascites fluid and Mesenteric edema extending into the paracolic gutters and pelvi s, increased from the previous examination/CT scan Right adnexal / pelvic heterogeneously enhancing lesions measuring altogether 6.9 x 6 x 3.4 cm which could represent an ovarian mass, endometriosis, ovarian mass/ lesion / neoplasm, degenerative leiomyo ma that is expelled, pedunculated leiomyoma, other neoplastic processes. Recommend visiting housekeeper consultation. Loops of dilated bowel in the left upper quadrant measuring up to 4 cm, possibly ileus Recommend obtaining CT abdomen pelvis with contrast 2 compared to the previous CT scan. Other findings as described.
--- NOTE | 2025-06-22 16:28 | DVHDS2 ---
Discharge Summary Date of Admission Jun 20, 2025 at 11:07 Date of Discharge: Jun 22, 2025 Admitting Diagnosis Small-bowel obstruction Labs/Diagnostic Data: Laboratory Results Test 06/21/25 08:28 06/20/25 07:43 06/20/25 07:20 White Blood Count 5.6 10^3/uL (4.4-10.8) Red Blood Count 3.91 10^6/uL (4.0-5.20) Hemoglobin 12.3 g/dL (12.2-16.2) Hematocrit 35.6 % (36.0-46.0) Mean Corpuscular Volume 90.9 fL (80.0-100.0) Mean Corpuscular Hemoglobin 31.4 pg (28.0-32.0) Mean Corpuscular Hemoglobin Concent 34.6 g/dL (32.0-36.0) Red Cell Distribution Width 14.7 % (11.8-14.3) Platelet Count 203 10^3/uL (140-450) Mean Platelet Volume 8.1 fL (6.9-10.8) Neutrophils (%) (Auto) 60.0 % (37.0-80.0) Lymphocytes (%) (Auto) 29.7 % (10.0-50.0) Monocytes (%) (Auto) 7.2 % (0.0-12.0) Eosinophils (%) (Auto) 2.6 % (0.0-7.0) Basophils (%) (Auto) 0.5 % (0.0-2.0) Neutrophils # (Auto) 3.3 10 ^3/uL (1.6-8.6) Lymphocytes # (Auto) 1.6 10 ^3/uL (0.4-5.4) Monocytes # (Auto) 0.4 10 ^3/uL (0-1.3) Eosinophils # (Auto) 0.1 10 ^3/uL (0-0.8) Basophils # (Auto) 0 10 ^3/uL (0-0.2) Nucleated Red Blood Cells 0.1 % Prothrombin Time 11.4 sec (9.3-11.8) Prothrombin Time INR 1.08 (0.9-1.15) Activated Partial Thromboplast Time 25.6 SEC (24.5-34.5) Sodium Level 141 mmol/L (136-145) Potassium Level 3.6 mmol/L (3.5-5.1) Chloride Level 108 mmol/L (98-107) Carbon Dioxide Level 24 mmol/L (20-31) Anion Gap 9 (5-15) Blood Urea Nitrogen 8 mg/dL (9-23) Creatinine 0.65 mg/dL (0.550-1.02) Glomerular Filtration Rate Calc 117 mL/min (>90) BUN/Creatinine Ratio 12.3 (10.0-20.0) Serum Glucose 107 mg/dL (74-106) Calcium Level 8.3 mg/dL (8.7-10.4) Total Bilirubin 0.7 mg/dL (0.2-1.0) Aspartate Amino Transferase (AST) 14 U/L (13-40) Alanine Aminotransferase (ALT) 11 U/L (7-40) Alkaline Phosphatase 51 U/L (46-116) Total Protein 6.2 g/dL (5.7-8.2) Albumin 3.9 g/dL (3.2-4.8) CA 19-9 Antigen 5 U/mL (0-35) CA 125 Antigen 32.2 U/mL (0.0-38.1) Urine Color Light-yellow (Yellow) Urine Clarity Clear (Clear) Urine pH 7.5 (5.0-9.0) Urine Specific [place] 1.020 (1.001-1.035) Urine Protein Negative (Negative) Urine Ketones 3+ (Negative) Urine Blood 2+ /uL (Negative) Urine Nitrite Negative (Negative) Urine Bilirubin Negative (Negative) Urine Urobilinogen Normal mg/dL (Negative) Urine Leukocyte Esterase Negative /uL (Negative) Urine RBC 27 /hpf (0 - 4) Urine Microscopic WBC < 1 /HPF (0-5) Urine Squamous Epithelial Cells Few /hpf (<5) Urine Bacteria None seen /hpf (None Seen) Urine Mucus Few (None Seen) Urine Yeast (Budding) Occasional /hpf (None Urine Glucose Normal mg/dL (Normal) Lipase 42 U/L (12-53) Other Laboratory Tests 06/21/25 08:28 Brief Hx & Hospital Course: History of Present Illness 34-year-old female with history of ischemic small intestine presented to the ED with a chief complaint of abdominal pain. Patient states she has been having epigastric abdominal pain with nausea vomiting and chills onset Friday 06/15. Patient states she was able to have a bowel movement this morning, when she was at home she took MiraLax/milk of magnesia/mineral oil enema which helped but she did not feel that she had a significant bowel movement, patient states no blood in stool noted, after bowel movement abdominal pain did not subside. Patient states current abdominal pain is 8/10, she denies diarrhea, fatigue, fever, dizziness, weakness no other symptoms or modifying factors are present at this time. Patient is having an NG-tube placed, patient speaks both Bengali and Turkmen. We will admit patient for surgical consult and management/treatment, abdominal CT does show small bowel obstruction. Course of hospitalization: Patient was started on empiric antibiotic therapy. Patient has surgical consultation. Small-bowel follow-through was performed with contrast reaching her rectum within 30 minutes. Patient had positive bowel movements while in the hospital. Patient was restarted on oral intake, tolerating full liquid diet at this time. CT scan did show questionable mass in the pancreas. Patient had MRI of the abdomen and pelvis which ruled out any type of pancreatic mass. Other findings included uterine fibroids for which the patient states she was diagnosed with in the past. Patient will be discharged home, and be provided a prescription for Reglan 5 mg p.o. b.i.d. for the next five days for her intermittent nausea as well as questionable ileus has been mentioned in MRI of the abdomen. No surgical intervention was deemed with this time. She is instructed to follow up with her has been out general surgeon that performed her hernia surgery at scheduled appointment. Patient was agreeable with discharge plan. All questions answered. Physical examination General: Alert and Oriented x3. No acute distress. Well-nourished. Eyes: EOMI. Anicteric. HENT: Moist mucous membranes. Lungs: Clear to auscultation bilaterally. No accessory muscle use. Cardiovascular: Regular rate and rhythm. No murmur. No JVD. Abdomen: Soft, non-tender and non-distended. No palpable masses. Extremities: No edema. Non-tender. Skin: No rashes or lesions. Warm. Neurologic: No focal neurological deficits. CN II-XII grossly intact, but not individually tested. Psychiatric: Cooperative. Appropriate mood and affect. Total time spent with patient discussing and formulating plan of care: 35 minutes. This medical document was created using an electronic medical record system with [employer] dictation system. Although this document has been carefully reviewed, there may still be some phonetic and typographical errors. These areas are purely typographical due to imperfections of the software programs, and do not reflect any compromise in the patient's medical care. Consults/Reason for consult General surgery: Bowel obstruction Condition at Discharge: Fair Final Diagnosis/Problems List Small-bowel obstruction Secondary diagnosis: -small-bowel obstruction, resolved -recent history of umbilical hernia repair -uterine fibroids -pancreatic mass ruled out Discharge Disposition: Home Discharge Instruct/Medications Diet: See Comment Diet comment: Recommend to continue with full liquid diet and advanced to a bland diet Activity: No Restrictions, As Tolerated Follow Up/Referral: Follow up with surgeon at scheduled appointment. Follow up with PCP in 1-2 weeks Medications: Reglan 5 mg p.o. b.i.d. x7 days 36 Discharge Statement: "Patient was advised to return to the ER or call 911 if any headaches, dizziness, shortness of breath, chest pain, abdominal pain, bleeding, fevers, or worsening of medical condition. Patient was counseled about treatment plan, medications, possible side effects, patientverbalized understanding. All questions were answered to the best of my ability. This discharge took greater then 30 minutes in planning, reviewing documentation, counseling the patient, and discussing with other team members." ASSESSMENT ASSESSMENT Assessment Small-bowel obstruction Date of Service: Jun 22, 2025 Billing Provider: WINSTON ZAMAN NP Common Visit Codes: 74665-FQI/OBS DISCH DAY >30min WINSTON ZAMAN NP Jun 22, 2025 16:28
[2025-06-22] MEDS ORDERED: METO5TAB67 PO (16:39)
[2025-06-22 16:55] VITALS: BP 111/63; PULSE 74; RESP 18; TEMP 98.4; O2SAT 98
== END 2025-06-22 18:40 | disposition home or self-care (01) | DRG 247 ==
LOC: ER 06:59 → OVERFLOW 11:07 → WEST WING 17:28
PROVIDERS: ADMIT Nurse Practitioner Acute Care; ATTEND Nurse Practitioner Acute Care
PROC: 0D9670Z Drainage of Stomach with Drainage Device, Via Natural or Artificial Opening (ICD-10-PCS; principal; 2025-06-20)
DX: K56.609 Unspecified intestinal obstruction, unspecified as to partial versus complete obstruction (principal); D25.9 Leiomyoma of uterus, unspecified; Z88.8 Allergy status to other drugs, medicaments and biological substances; Z98.84 Bariatric surgery status; Z98.51 Tubal ligation status; Z80.9 Family history of malignant neoplasm, unspecified; Z90.49 Acquired absence of other specified parts of digestive tract
CPT/HCPCS: 36415; 71045; 72195; 74176; 74181; 74250; 76856; 80053; 81001; 83690; 85025; 85610; 85730; 86301; 86304; 96361; 96374; 96375; G0378; J2405; J2470; J3490